=== PATIENT | male | born 1940 | race Caucasian/White ===

== ENCOUNTER 2016-12-13 18:49 | Emergency (ER) | payer MEDICARE ==
[2016-12-13] MEDS ORDERED: Diphtheria/Tetanus Toxoids,Adult (Td) 0.5 ML Syringe IM ONE (19:04)
[2016-12-13] MEDS ORDERED: Bacitracin Oint 1 GM U/D Packet TOP ONE (19:04)
[2016-12-13] MEDS ORDERED: Lidocaine 1% 20 ML MDV ONE (19:10)
--- NOTE | 2016-12-13 19:44 | EDM.PDOC ---
ED HPI GENERAL MEDICAL PROBLEM - General Chief Complaint: Laceration Stated Complaint: LEFT ARM CUT Time Seen by Provider: 12/13/16 19:20 Source of Information: Reports: Patient History Limitations: Reports: No Limitations - History of Present Illness INITIAL COMMENTS - FREE TEXT/NARRATIVE: HISTORY AND PHYSICAL: History of present illness: [Patient comes to the emergency room complaining of a laceration to his left medial distal forearm. He was working on a combine when he cut his wrist on a piece of sheet metal while he was climbing down off the combine. Cleaned it well at home but was unable to stop bleeding. Presents to the emergency room for evaluation. Cannot remember the date of his last tetanus shot. Denies taking any blood thinners other than a baby aspirin every day.] Review of systems: As per history of present illness and below otherwise all systems reviewed and negative. Past medical history: As per history of present illness and as reviewed below otherwise noncontributory. Surgical history: As per history of present illness and as reviewed below otherwise noncontributory. Social history: No reported history of drug or alcohol abuse. Family history: As per history of present illness and as reviewed below otherwise noncontributory. Physical exam: HEENT: Atraumatic, normocephalic. Extremities: 3.5 cm linear flap-type laceration to left medial distal forearm. See procedure note. Is nontender with palpation over elbow radius and ulna. Has full range of motion. Neurovascular unremarkable. Neuro: Awake, alert, oriented. Motor and sensory unremarkable throughout. Exam nonfocal. Psych: Pleasant, conversational. Impression: [laceration L distal forearm] Plan: [Wound is closed without any difficulty. See procedure note. Adacel was updated. Return to ER in 7 days for suture removal. Patients in agreement with today's plan. All questions are answered and concerns are addressed.] Definitive disposition and diagnosis as appropriate pending reevaluation and review of above. Left Arm Pain Score (Numeric/FACES): 2 - Related Data Allergies Allergy/AdvReac Type Severity Reaction Status Date / Time No Known Allergies Allergy Verified 12/13/16 18:57 Home Meds: Home Meds Aspirin [Halfprin] 1 tab PO DAILY 01/10/16 [History] Diltiazem HCl [Diltiazem 24Hr ER] 1 tab PO DAILY 01/10/16 [History] Fish Oil/[place]-3 Fatty Acids [Fish Oil 1,000 MG] 1 cap PO DAILY 01/10/16 [ History] Multivitamin [Multi-Day Vitamins] 1 tab PO DAILY 01/10/16 [History] Past Medical History Cardiovascular History: Reports: Hypertension, Other (See Below) Other Cardiovascular History: h/o SVT first 1-2 per week, after placed on diltiazem 1-2 per year- last one 3 months ago. Last between 30 sec. and 10 minutes Gastrointestinal History: Reports: Other (See Below) Other Gastrointestinal History: Current Left Inguinal hernia Genitourinary History: Reports: Other (See Below) Musculoskeletal History: Reports: Arthritis Other Musculoskeletal History: Right Shoulder pain, hx: Shoulder dislocation Oncologic (Cancer) History: Reports: Prostate, Squamous Cell Carcinoma Dermatologic History: Reports: Other (See Below) Other Dermatologic History: Sebaceous Cyst to back - Infectious Disease History Infectious Disease History: Reports: Chicken Pox, Measles, Mumps - Past Surgical History HEENT Surgical History: Reports: Cataract Surgery, Other (See Below) Social & Family History - Tobacco Use Smoking Status *Q: Current Every Day Smoker Years of Tobacco use: 10 Packs/Tins Daily: 0.5 - Caffeine Use Caffeine Use: Reports: None - Recreational Drug Use Recreational Drug Use: No Drug Use in Last 12 Months: No ED ROS GENERAL - Review of Systems Review Of Systems: ROS reveals no pertinent complaints other than HPI. ED EXAM, SKIN/RASH Exam: See Below ED SKIN PROCEDURES - Laceration/Wound Repair Left Medial Distal Arm Lac/Wound length In cm: 3.5 Appearance: Subcutaneous Distal NVT: Neuro & Vascular Intact, No Tendon Injury Anesthetic Type: Local Local Anesthesia - Lidocaine (Xylocaine): 1% Plain Local Anesthetic Volume: 5cc Skin Prep: Chlorhexidine (Hibiciens), Saline, Sterile Drape Exploration/Debridement/Repair: Wound Explored, In a Bloodless Field, No Foreign Material Found Closed with: Sutures, Steri-Strips Suture Size: 4-0 # of Sutures: 6 Suture Type: Nylon Sterile Dressing Applied: Nurse Tetanus Status Addressed: Yes Complications: No Course - Vital Signs Last Recorded V/S: Last Vital Signs Temp 97.9 F 12/13/16 18:58 Pulse 89 12/13/16 18:58 Resp 18 12/13/16 18:58 BP 122/80 12/13/16 18:58 Pulse Ox 97 12/13/16 18:58 - Orders/Labs/Meds Orders: Active Orders 24 hr Category Date Time Status Vaccines to be Administered [RC] PER UNIT ROUTINE Care 12/13/16 19:05 Active Meds: Medications Discontinued Medications Generic Name Dose Route Start Last Admin Trade Name Carmen PRN Reason Stop Dose Admin Bacitracin 1 dose 12/13/16 19:04 12/13/16 19:14 Bacitracin Oint 1 Gm TOP 12/13/16 19:05 1 dose ONETIME ONE Administration Lidocaine HCl Confirm 12/13/16 19:10 12/13/16 19:14 Xylocaine 1% Administered 12/13/16 19:11 20 ml Dose Administration 20 ml .ROUTE .STK-MED ONE Tetanus/Diphtheria Toxoids 0.5 ml 12/13/16 19:04 12/13/16 19:14 Tenivac IM 12/13/16 19:05 0.5 ml .ONCE ONE Administration Departure - Departure Time of Disposition: 19:45 Disposition: Home, Self-Care 01 Condition: Good Clinical Impression: Laceration of forearm, left - Discharge Information Instructions: Laceration Care, Adult Referrals: PCP,Unknown [Primary Care Provider] - Forms: ED Department Discharge Additional Instructions: The following information is given to patients seen in the emergency department who are being discharged to home. This information is to outline your options for follow-up care. We provide all patients seen in our emergency department with a follow-up referral. The need for follow-up, as well as the timing and circumstances, are variable depending upon the specifics of your emergency department visit. If you don't have a primary care physician on staff, we will provide you with a referral. We always advise you to contact your personal physician following an emergency department visit to inform them of the circumstance of the visit and for follow-up with them and/or the need for any referrals to a consulting specialist. The emergency department will also refer you to a specialist when appropriate. This referral assures that you have the opportunity for follow-up care with a specialist. All of these measure are taken in an effort to provide you with optimal care, which includes your follow-up. Under all circumstances we always encourage you to contact your private physician who remains a resource for coordinating your care. When calling for follow-up care, please make the office aware that this follow-up is from your recent emergency room visit. If for any reason you are refused follow-up, please contact the [facility] emergency department at and asked to speak to the emergency department charge nurse. [address] [address] Establish care with a local primary care provider at the clinic listed above. Return to ER in 7 days for suture removal as instructed. Return to ER as needed as discussed.
[2016-12-13 19:47] VITALS: BP 121/80
== END 2016-12-13 19:50 | disposition home or self-care (01) ==
LOC: MW.ED 18:49
DX: S51.812A Laceration without foreign body of left forearm, initial encounter (principal); I10 Essential (primary) hypertension; F17.210 Nicotine dependence, cigarettes, uncomplicated; Z79.82 Long term (current) use of aspirin; Z79.899 Other long term (current) drug therapy; Z23 Encounter for immunization; W26.8XXA Contact with other sharp object(s), not elsewhere classified, initial encounter
CPT/HCPCS: 12002; 90471; 90714; 99282; 99282-25

== ENCOUNTER 2017-12-17 14:11 | Observation (INO) | payer MEDICARE ==
[2017-12-17] MEDS ORDERED: Sodium Chloride 0.9% 10 ML Syringe FLUSH PRN ×2 (14:14→18:32)
[2017-12-17] MEDS ORDERED: Sodium Chloride 0.9% 2.5 ML Syringe FLUSH PRN ×2 (14:14→18:32)
[2017-12-17] MEDS ORDERED: Sodium Chloride 0.9% 1,000 ML IV ONE (14:14)
--- NOTE | 2017-12-17 14:33 | EDM.PDOC ---
ED HPI GENERAL MEDICAL PROBLEM - General Chief Complaint: Neuro Symptoms/Deficits Stated Complaint: DIZZY Time Seen by Provider: 12/17/17 14:30 Source of Information: Reports: Patient History Limitations: Reports: No Limitations - History of Present Illness INITIAL COMMENTS - FREE TEXT/NARRATIVE: HISTORY AND PHYSICAL: History of present illness: Patient is 77-year-old male here with complaint of dizziness that started this morning. He reports that about 10 AM he began to feel dizzy as a stepped down from his tractor and has been getting dizzy intermittently every time that he leans forward. He denies any head injury. He states he's had a bit of a headache in his frontal sinuses. He denies any nausea, vomiting, diarrhea, abdominal pain, chest pain, shortness of breath, fever, chills. Patient reports a history of atrial fibrillation and takes diltiazem. He states that he drinks a lot of caffeine and smokes cigars daily. 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 Review of systems: As per history of present illness and below otherwise all systems reviewed and negative. Past medical history: As per history of present illness and as reviewed below otherwise noncontributory. Surgical history: As per history of present illness and as reviewed below otherwise noncontributory. Social history: No reported history of drug or alcohol abuse. Family history: As per history of present illness and as reviewed below otherwise noncontributory. Physical exam: General: Patient sitting comfortably in no acute distress and nontoxic appearing HEENT: Atraumatic, normocephalic, pupils reactive, negative for conjunctival pallor or scleral icterus, mucous membranes moist, throat clear, neck supple, nontender, trachea midline. No meningeal signs. Lungs: Clear to auscultation, breath sounds equal bilaterally, chest nontender. Heart: S1S2, regular, negative for clicks, rubs, or overt murmur. Abdomen: Soft, nondistended, nontender. Negative for masses or hepatosplenomegaly. Negative for costovertebral tenderness. Pelvis: Stable nontender. Genitourinary: Deferred. Rectal: Deferred. Extremities: Atraumatic, negative for cords or calf pain. Neurovascular unremarkable. Neuro: Awake, alert, oriented. Cranial nerves II through XII unremarkable. Cerebellum unremarkable. Motor and sensory unremarkable throughout. Exam nonfocal. Notes: 1530 - Dr. Carrasquillo consulted on elevated troponin and will consult patient in the ED. 1600 - will get BNP, d-dimer, chest x-ray per Dr. Carrasquillo. Patient will be admitted here, Dr. Milligan accepted patient for admit. Diagnostics: CBC, CMP, troponin, EKG, head CT Therapeutics 1 L normal saline IV 324mg Aspirin chewed Prescriptions: Impression: NSTEMI Plan: Discussed with Dr. Milligan, patient will be admitted for telemetry. Definitive disposition and diagnosis as appropriate pending reevaluation and review of above. - Related Data Allergies Allergy/AdvReac Type Severity Reaction Status Date / Time No Known Allergies Allergy Verified 12/17/17 14:15 Home Meds: Home Meds Aspirin [Halfprin] 1 tab PO DAILY 01/10/16 [History] Diltiazem HCl [Diltiazem 24Hr ER] 1 tab PO DAILY 01/10/16 [History] Fish Oil/[place]-3 Fatty Acids [Fish Oil 1,000 MG] 1 cap PO DAILY 01/10/16 [ History] Multivitamin [Multi-Day Vitamins] 1 tab PO DAILY 01/10/16 [History] Past Medical History Cardiovascular History: Reports: Afib, Other (See Below) Other Cardiovascular History: h/o SVT first 1-2 per week, after placed on diltiazem 1-2 per year- last one 3 months ago. Last between 30 sec. and 10 minutes Gastrointestinal History: Reports: Other (See Below) Other Gastrointestinal History: Current Left Inguinal hernia Genitourinary History: Reports: Other (See Below) Musculoskeletal History: Reports: Arthritis Other Musculoskeletal History: Right Shoulder pain, hx: Shoulder dislocation Oncologic (Cancer) History: Reports: Prostate, Squamous Cell Carcinoma Dermatologic History: Reports: Other (See Below) Other Dermatologic History: Sebaceous Cyst to back - Infectious Disease History Infectious Disease History: Reports: Chicken Pox, Measles - Past Surgical History HEENT Surgical History: Reports: Cataract Surgery, Other (See Below) Social & Family History - Family History Family Medical History: Noncontributory - Tobacco Use Smoking Status *Q: Current Every Day Smoker Years of Tobacco use: 10 Packs/Tins Daily: 0.3 - Caffeine Use Caffeine Use: Reports: Coffee - Alcohol Use Days Per Week of Alcohol Use: 7 Number of Drinks Per Day: 3 Total Drinks Per Week: 21 - Recreational Drug Use Recreational Drug Use: No ED ROS GENERAL - Review of Systems Review Of Systems: ROS reveals no pertinent complaints other than HPI. ED EXAM, NEURO - Physical Exam Exam: See Below (see dictation) Course - Vital Signs Last Recorded V/S: Last Vital Signs Temp 36.9 C 12/17/17 14:15 Pulse 78 12/17/17 15:30 Resp 16 12/17/17 15:30 BP 125/59 L 12/17/17 15:30 Pulse Ox 96 12/17/17 15:30 - Orders/Labs/Meds Orders: Active Orders 24 hr Category Date Time Status Admission Status [Patient Status] [ADT] Stat ADT 12/17/17 17:34 Ordered EKG Documentation Completion [RC] STAT Care 12/17/17 14:15 Active Notify Provider Consults [RC] ASDIRECTED Care 12/17/17 15:43 Active Consult to Physician [CONS] Stat Cons 12/17/17 15:43 Active CTA Chest W WO Contrast [Ang Chest] [CT] Stat Exams 12/17/17 16:44 Taken Chest 2V [CR] Stat Exams 12/17/17 16:08 Taken Sodium Chloride 0.9% [Saline Flush] Med 12/17/17 14:14 Active 10 ml FLUSH ASDIRECTED PRN Sodium Chloride 0.9% [Saline Flush] Med 12/17/17 14:14 Active 2.5 ml FLUSH ASDIRECTED PRN Saline Lock Insert [OM.PC] Stat Oth 12/17/17 14:14 Ordered Medication Orders Sodium Chloride (Saline Flush) 10 ml FLUSH ASDIRECTED PRN PRN Reason: Keep Vein Open Last Admin: 12/17/17 14:29 Dose: 10 ml Sodium Chloride (Saline Flush) 2.5 ml FLUSH ASDIRECTED PRN PRN Reason: Keep Vein Open Last Admin: 12/17/17 14:29 Dose: 2.5 ml Labs: Laboratory Tests 12/17/17 12/17/17 12/17/17 Range/Units 14:25 14:25 16:21 WBC 7.91 (4.0-11.0) K/uL RBC 4.25 L (4.50-5.90) M/uL Hgb 14.1 (13.0-17.0) g/dL Hct 39.7 (38.0-50.0) % MCV 93.4 (80.0-98.0) fL MCH 33.2 H (27.0-32.0) pg MCHC 35.5 (31.0-37.0) g/dL RDW Std Deviation 45.3 (28.0-62.0) fl RDW Coeff of Faith 13 (11.0-15.0) % Plt Count 237 (150-400) K/uL MPV 9.50 (7.40-12.00) fL Neut % (Auto) 62.3 (48.0-80.0) % Lymph % (Auto) 22.1 (16.0-40.0) % [place] % (Auto) 11.0 (0.0-15.0) % Eos % (Auto) 4.3 (0.0-7.0) % Baso % (Auto) 0.3 (0.0-1.5) % Neut # (Auto) 4.9 (1.4-5.7) K/uL Lymph # (Auto) 1.8 (0.6-2.4) K/uL [place] # (Auto) 0.9 H (0.0-0.8) K/uL Eos # (Auto) 0.3 (0.0-0.7) K/uL Baso # (Auto) 0.0 (0.0-0.1) K/uL Nucleated RBC % 0.0 /100WBC Nucleated RBCs # 0 K/uL D-Dimer, Quantitative 1.18 H (0.0-0.52) mg/LFEU Sodium 137 (136-148) mmol/L Potassium 4.0 (3.5-5.1) mmol/L Chloride 103 (98-107) mmol/L Carbon Dioxide 26.9 (21.0-32.0) mmol/L BUN 16 (7.0-18.0) mg/dL Creatinine 1.3 (0.8-1.3) mg/dL Est Cr Clr Drug Dosing 46.57 mL/min Estimated GFR (MDRD) 53.4 ml/min Glucose 113 H (74-106) mg/dL Calcium 9.3 (8.5-10.1) mg/dL Total Bilirubin 0.6 (0.2-1.0) mg/dL AST 14 L (15-37) IU/L ALT 16 (14-63) IU/L Alkaline Phosphatase 97 (46-116) U/L Troponin I 0.342 H* (0.000-0.056) ng/mL B-Natriuretic Peptide (<100) PG/ML Total Protein 7.6 (6.4-8.2) g/dL Albumin 3.5 (3.4-5.0) g/dL Globulin 4.1 H (2.0-3.5) g/dL Albumin/Globulin Ratio 0.9 L (1.3-2.8) 12/17/17 Range/Units 16:21 WBC (4.0-11.0) K/uL RBC (4.50-5.90) M/uL Hgb (13.0-17.0) g/dL Hct (38.0-50.0) % MCV (80.0-98.0) fL MCH (27.0-32.0) pg MCHC (31.0-37.0) g/dL RDW Std Deviation (28.0-62.0) fl RDW Coeff of Faith (11.0-15.0) % Plt Count (150-400) K/uL MPV (7.40-12.00) fL Neut % (Auto) (48.0-80.0) % Lymph % (Auto) (16.0-40.0) % [place] % (Auto) (0.0-15.0) % Eos % (Auto) (0.0-7.0) % Baso % (Auto) (0.0-1.5) % Neut # (Auto) (1.4-5.7) K/uL Lymph # (Auto) (0.6-2.4) K/uL [place] # (Auto) (0.0-0.8) K/uL Eos # (Auto) (0.0-0.7) K/uL Baso # (Auto) (0.0-0.1) K/uL Nucleated RBC % /100WBC Nucleated RBCs # K/uL D-Dimer, Quantitative (0.0-0.52) mg/LFEU Sodium (136-148) mmol/L Potassium (3.5-5.1) mmol/L Chloride (98-107) mmol/L Carbon Dioxide (21.0-32.0) mmol/L BUN (7.0-18.0) mg/dL Creatinine (0.8-1.3) mg/dL Est Cr Clr Drug Dosing mL/min Estimated GFR (MDRD) ml/min Glucose (74-106) mg/dL Calcium (8.5-10.1) mg/dL Total Bilirubin (0.2-1.0) mg/dL AST (15-37) IU/L ALT (14-63) IU/L Alkaline Phosphatase (46-116) U/L Troponin I (0.000-0.056) ng/mL B-Natriuretic Peptide 30 (<100) PG/ML Total Protein (6.4-8.2) g/dL Albumin (3.4-5.0) g/dL Globulin (2.0-3.5) g/dL Albumin/Globulin Ratio (1.3-2.8) Meds: Medications Generic Name Dose Route Start Last Admin Trade Name Freq PRN Reason Stop Dose Admin Sodium Chloride 10 ml 12/17/17 14:14 12/17/17 14:29 Saline Flush FLUSH 10 ml ASDIRECTED PRN Administration Keep Vein Open Sodium Chloride 2.5 ml 12/17/17 14:14 12/17/17 14:29 Saline Flush FLUSH 2.5 ml ASDIRECTED PRN Administration Keep Vein Open Discontinued Medications Generic Name Dose Route Start Last Admin Trade Name Freq PRN Reason Stop Dose Admin Aspirin 324 mg 12/17/17 15:37 12/17/17 15:45 Aspirin PO 12/17/17 15:38 324 mg ONETIME ONE Administration Sodium Chloride 1,000 mls @ 999 mls/hr 12/17/17 14:14 12/17/17 14:29 Normal Saline IV 12/17/17 15:14 999 mls/hr STAT ONE Administration Departure - Departure Time of Disposition: 17:38 Disposition: DC/Tfer to Hospice - Home 50 Condition: Good Clinical Impression: NSTEMI (non-ST elevated myocardial infarction) - Discharge Information Referrals: PCP,None [Primary Care Provider] - Forms: ED Department Discharge - My Orders Last 24 Hours: My Active Orders 12/17/17 14:14 Sodium Chloride 0.9% [Saline Flush] 10 ml FLUSH ASDIRECTED PRN Sodium Chloride 0.9% [Saline Flush] 2.5 ml FLUSH ASDIRECTED PRN Saline Lock Insert [OM.PC] Stat 12/17/17 14:15 EKG Documentation Completion [RC] STAT 12/17/17 15:43 Notify Provider Consults [RC] ASDIRECTED Consult to Physician [CONS] Stat 12/17/17 16:08 Chest 2V [CR] Stat 12/17/17 16:44 CTA Chest W WO Contrast [Ang Chest] [CT] Stat 12/17/17 17:34 Admission Status [Patient Status] [ADT] Stat - Assessment/Plan Last 24 Hours: My Active Orders 12/17/17 14:14 Sodium Chloride 0.9% [Saline Flush] 10 ml FLUSH ASDIRECTED PRN Sodium Chloride 0.9% [Saline Flush] 2.5 ml FLUSH ASDIRECTED PRN Saline Lock Insert [OM.PC] Stat 12/17/17 14:15 EKG Documentation Completion [RC] STAT 12/17/17 15:43 Notify Provider Consults [RC] ASDIRECTED Consult to Physician [CONS] Stat 12/17/17 16:08 Chest 2V [CR] Stat 12/17/17 16:44 CTA Chest W WO Contrast [Ang Chest] [CT] Stat 12/17/17 17:34 Admission Status [Patient Status] [ADT] Stat
--- NOTE | 2017-12-17 15:08 | CT ---
EXAMINATION: Non contrast CT head. Coronal and sagittal reformats. HISTORY: Pain FINDINGS: No evidence of intra or extra axial hemorrhage, mass, midline shift, hydrocephalus or edema. There i s mild generalized atrophy. No hypoattenuation changes in the major vascular territories to suggest acute infarct. No abnormal intracranial calcifications are detected. No evidence of substantial vascular calcificat ions. Paranasal sinuses and mastoid air cells are well aerated without substantial findings. Pituitary fossa appears unremarkable. Orbits and globes are symmetric. There is a 2.2 x 1.3 cm right parotid nodule noted. Calvarium is intact. No evidence of skull fracture. IMPRESSION: 1. No acute intracranial findings. 2. Mild generalized atrophy. 3. There is a 2.2 x 1.3 cm right parotid nodule identified. Follow-up with ultrasound and possible bi opsy may be beneficial.
[2017-12-17] MEDS ORDERED: Aspirin 81 MG Tab.Chew PO ONE (15:37)
[2017-12-17] MEDS ORDERED: Iopamidol 755 MG/ML 500 ML Multipack Bottle IVPUSH STA (17:39)
--- NOTE | 2017-12-17 18:14 | CONS ---
DATE OF CONSULTATION: DATE OF : 1940 PRIMARY CARE PHYSICIAN: None PCP REASON FOR CONSULTATION: Elevation in troponin. HISTORY OF PRESENT ILLNESS: This is a 77-year-old male who has a history of hypertension and prostate cancer. He was former smoker and he presented to the hospital at this time due to dizzy spell. He stated that 6 weeks ago when he was carrying the heavy item, he was slipping and then he fell down. He hit his head to the floor. He did not lose consciousness. No weakness. No headaches. He has a slight cut on the back of his head, but it has healed up already. He did not come to the emergency room or seen the doctor. Since then, he has been having these dizzy spells that he stated that he feels an imbalance, especially when he is standing up or sitting up or stepping down or bends over, lasting for 15 to 30 seconds. No nausea, no vomiting, no sweating. He denies chest pain. Denies shortness of breath. He denies chest tightness as well. Also has indigestion. He has a history of a stress test in the past, long time ago. He does not recall the results. He denied history of a stent placement or heart attack. He is on diltiazem as well as a baby aspirin for his blood pressure. Otherwise, he is feeling okay except the dizzy spell. He feels like his energy level was down for a long period of time, maybe decrease in his stamina as well, but he still does some farming, still does some yard work as well as shoveling snow, some house work without any problem. He also denied leg swelling or orthopnea as well. PAST MEDICAL HISTORY: Including prostate cancer, hypertension, history of cataracts. MEDICATIONS: Includin. Diltiazem 180 mg once a day. 2. Aspirin once a day. ALLERGIES: No known drug allergies. FAMILY HISTORY: He denies family history of a CAD. SOCIAL HISTORY: He is a former smoker, heavily. He drinks alcohol 2 to 3 times at night. He denied drug use. PHYSICAL EXAMINATION: VITAL SIGNS: Blood pressure initially was low at 138/70, heart rate of 70 to 80, O2 saturation is 97 to 99 on room air, temperature is 36.9. HEENT: Not pale. No jaundice. NECK: JVD possibly positive. LUNGS: Crackles bilaterally. Mild crackle. No wheezing. HEART: Normal S1, S2. No murmur. Regular rate and rhythm. ABDOMEN: Soft, nontender. Bowel sounds are present. No hepatosplenomegaly. EXTREMITIES: Legs with no edema. LABORATORY INVESTIGATION: CBC showed WBC 7, hematocrit of 39, hemoglobin of 14, platelet is 237. Sodium 137, potassium 4.0, chloride 103, bicarb 26, BUN 16, creatinine 1.3, GFR is 53, and glucose 113. Liver function is normal. Troponin was positive 0.3. EKG showed sinus rhythm on December 17, 2017. Heart rate of 84, WA interval 167, QRS duration 105, QTc interval 439, left axis deviation, left anterior fascicular block. There are some PVCs. Head CT showed generalized atrophy, 2.2 x 1.3 right parotid nodule. No abnormal intracranial calcification detected. No site of bleeding, hemorrhage, midline shift. ASSESSMENT AND PLAN: This is a 77-year-old male with history of hypertension and prostate cancer, presented to hospital with increased dizzy spells with elevation of troponin. There were no EKG changes when compared to previous EKG and he denied totally a chest pain, chest tightness or indigestion, even shortness of breath. Not exactly sure what would be the cause of troponin, but currently there is no symptom of the chest pain indicating of any site of ischemia, only dizziness. To me, dizziness could be just the vertigo and from physical examination, he has some JVD, not exactly sure that he is in heart failure definitely, but we will definitely check BNP as well as a chest x-ray. For the elevation troponin, I think we can keep him in the hospital and cycle cardiac enzymes. Check an echocardiogram. Make sure there is no PE. Repeat the EKG again next morning. EMMANUEL / LEOBARDO /[id number]
[2017-12-17] MEDS ORDERED: oxyCODONE 5 MG Tab PO PRN (18:32)
[2017-12-17] MEDS ORDERED: Ondansetron 4 MG/2 ML SDV IVPUSH PRN (18:32)
[2017-12-17] MEDS ORDERED: Acetaminophen 325 MG Tab PO PRN (18:32)
[2017-12-17] MEDS ORDERED: Albuterol/Ipratropium 3.0-0.5 MG/3 ML Neb Soln NEB PRN (18:32)
[2017-12-17] MEDS ORDERED: Clopidogrel 75 MG Tab PO ONE (18:35)
[2017-12-17] MEDS ORDERED: atorvaSTATin 40 MG Tab PO ONE (18:35)
[2017-12-17] MEDS ORDERED: Morphine 2 MG/ML Syringe IVPUSH PRN (18:37)
[2017-12-17] MEDS ORDERED: Heparin Sod,Pork In 0.45% Nacl 25,000 UNIT/500 ML IV.SOLN IV SCH (18:45)
[2017-12-17] MEDS ORDERED: Heparin Sodium 5,000 Units/ML Vial IVPUSH PRN (18:48)
[2017-12-18] MEDS ORDERED: Heparin Sodium 5,000 Units/ML Vial IVPUSH ONE ×2 (01:37→13:55)
[2017-12-18] MEDS ORDERED: Heparin Sodium 5,000 Units/ML Vial ONE (01:41)
[2017-12-18] MEDS ORDERED: Heparin Sodium 5,000 Units/ML Vial IVPUSH PRN (07:34)
[2017-12-18] MEDS ORDERED: Lactated Ringers 1,000 ML IV SCH (08:30)
[2017-12-18] MEDS ORDERED: Multivitamin Tab PO SCH (09:00)
[2017-12-18] MEDS ORDERED: Fish Oil/Omega-3 Fatty Acids 1 Gm Cap PO SCH (09:00)
[2017-12-18] MEDS ORDERED: Diltiazem 180 MG Cap.CD PO SCH (09:00)
[2017-12-18] MEDS ORDERED: Aspirin 81 MG Tab.EC PO SCH (09:00)
--- NOTE | 2017-12-18 10:36 | CR ---
EXAM DATE: 12/17/17 PATIENT'S AGE: 77 Patient: ROMÁN NIELSEN Facility: [place], [place] Site . Site : 1940 Study: XRay Chest [id number] 4:46:06 PM Ordering Physician: Doctor German Final Report: INDICATION: Elevated d-dimer, dizziness TECHNIQUE: Chest radiograph 2 views COMPARISON: None FINDINGS: Mediastinum: The mediastinum is normal in appearance. The heart silhouette is normal in size and morphology. Lung: Asymmetric densities are present in the left midlung zone and likely correspond to calcifications in the left 4th-6th costochondral junctions. There is a 10 mm nodular density in the left mid lung zone which may represent may prominent nipple silhouette. No sign of pleural effusion seen. No pneumothorax is identified. Musculoskeletal: Unremarkable for age. IMPRESSION: 1. There is a 10 mm nodular density in the left mid lung zone which may represent may prominent nipple silhouette. Follow-up radiograph with nipple markers recommended. Dictated by Charles Solano MD @ 12/17/2017 4:54:53 PM Dictated by: Charles Solano MD @ 12/17/2017 16:54:59 (Electronic Signature) Report Signed by Proxy. ROSA MARIA
--- NOTE | 2017-12-18 10:39 | CT ---
EXAM DATE: 12/17/17 PATIENT'S AGE: 77 Patient: ROMÁN NIELSEN Facility: [place], [place] Site . Site : 1940 Study: CT Chest Angio [id number] 5:21:39 PM Ordering Physician: Doctor German Final Report: INDICATION: Elevated d-dimer TECHNIQUE: CT chest with i.v. contrast using pulmonary angiographic technique. Coronal and sagittal reformats were obtained. CONTRAST: 50 mL Isovue 370 COMPARISON: None FINDINGS: Cardiovascular: The pulmonary arteries are unremarkable in enhancement with no evidence of acute pulmonary embolism. The heart has an unremarkable appearance and size. 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 moderate atherosclerotic calcifications are noted in the coronary arteries. Mediastinum: No mass or adenopathy seen. Lung: Both lungs are unremarkable in appearance. The lung bases are partially excluded. Pleura and pericardium: No sign of pleural effusion seen. No significant pericardial effusion is present. Chest wall and axilla: No mass or adenopathy seen. Bone: Unremarkable for age. Upper abdomen: Unremarkable. IMPRESSIONS: 1. No CT evidence of pulmonary emboli seen. 2. 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 Dictated by Charles Solano MD @ 12/17/2017 5:35:21 PM Please note that all CT scans at this facility use dose modulation, iterative reconstruction, and/or weight-based dosing when appropriate to reduce radiation dose to as low as reasonably achievable. Dictated by: Charles Solano MD @ 12/17/2017 17:35:24 (Electronic Signature) Report Signed by Proxy. ROSA MARIA
[2017-12-18] MEDS ORDERED: Clopidogrel 75 MG Tab PO SCH (13:00)
[2017-12-18] MEDS ORDERED: Aspirin 81 MG Tab.Chew PO SCH (13:00)
--- NOTE | 2017-12-18 16:10 | US ---
EXAMINATION: Carotid US with elise scale and duplex imaging. HISTORY: Near syncope FINDINGS: Ultrasound examination of bilateral cervical carotid arteries was performed using elise scale and dupl ex imaging. Mild scattered atheromatous changes noted within the carotid arteries bilaterally. Ante grade flow noted within the vertebrals. These are the peak velocities in cm per second (systole), right and left respectively, by a comma: CCA (common carotid artery) - 106, 108 ICA (internal carotid artery) - 90, 78 ECA (External carotid artery) - 85, 62 ICA/CCA systolic ratio Right - 1.0 Left - 1.0 IMPRESSION: Mild scattered atheromatous changes without significant stenosis on elise scale imaging or elevated ve locities.
[2017-12-18 16:47] VITALS: BP 121/66
[2017-12-18] MEDS ORDERED: Diltiazem 120 MG Cap.CD PO SCH (18:00)
--- NOTE | 2017-12-18 19:46 | PCM.HP ---
H&P History of Present Illness - General Date of Service: 12/18/17 Admit Problem/Dx: Admission Diagnosis/Problem Admission Diagnosis/Problem dizziness Source of Information: Patient History Limitations: Reports: No Limitations - History of Present Illness Initial Comments - Free Text/Narative: Patient 77 y old man presented to hospital due to dizziness when he was trying to bend over or stand up. He describe his dizziness as lightheadedness.He still smoke 3-4 ciggars a day .Had a fall 6 weeks ago when he was walking backwards on a stairs and had a 80 lbs load landing on his chest.He hit his back of his head, but did not loose consciousness. Patient says he had some lower rt anterior thoracic pain after the fall for severel weeks. Patient denies chest pain now. At admission in ER he was found to have elevated troponins. Cardiology saw patient and recommended patient to be admitted to telemetry on heparin drip , full dose of aspirin and plavix and will reevaluate patient in am. CTPA - no pE , ectasia of ascending Ao : 3.9. Aneurismal dilatation of the posterior Ao arch;3.6 Symptom Onset Date: 12/17/17 Duration of Symptoms: Reports: Minutes: - Related Data Allergies/Adverse Reactions: Allergies Allergy/AdvReac Type Severity Reaction Status Date / Time No Known Allergies Allergy Verified 12/17/17 14:15 Home Medications: Home Meds Aspirin [Halfprin] 1 tab PO DAILY 01/10/16 [History] Fish Oil/[place]-3 Fatty Acids [Fish Oil 1,000 MG] 1 cap PO DAILY 01/10/16 [ History] Multivitamin [Multi-Day Vitamins] 1 tab PO DAILY 01/10/16 [History] Aspirin 81 mg PO DAILY #60 tab.chew 12/18/17 [Rx] Diltiazem [Cardizem CD] 120 mg PO DAILY #30 cap.cd 12/18/17 [Rx] Multivitamins [Tab-A-Bria] 1 tab PO DAILY tablet 12/18/17 [Rx] Past Medical History Cardiovascular History: Reports: Afib, Other (See Below) Other Cardiovascular History: h/o SVT first 1-2 per week, after placed on diltiazem 1-2 per year- last one 3 months ago. Last between 30 sec. and 10 minutes Gastrointestinal History: Reports: Other (See Below) Other Gastrointestinal History: Current Left Inguinal hernia Genitourinary History: Reports: Other (See Below) Other Genitourinary History: Hx of Prostactectomy Musculoskeletal History: Reports: Arthritis Other Musculoskeletal History: Right Shoulder pain, hx: Shoulder dislocation Oncologic (Cancer) History: Reports: Prostate, Squamous Cell Carcinoma Dermatologic History: Reports: Other (See Below) Other Dermatologic History: Sebaceous Cyst to back, Hx of Squamous cell CA - Infectious Disease History Infectious Disease History: Reports: Chicken Pox, Measles - Past Surgical History HEENT Surgical History: Reports: Cataract Surgery, Other (See Below) Social & Family History - Family History Family Medical History: Noncontributory - Tobacco Use Smoking Status *Q: Current Every Day Smoker Years of Tobacco use: 10 Packs/Tins Daily: 1 Second Hand Smoke Exposure: No - Caffeine Use Caffeine Use: Reports: Coffee - Alcohol Use Days Per Week of Alcohol Use: 7 Number of Drinks Per Day: 3 Total Drinks Per Week: 21 Date of Last Drink: 12/16/17 - Recreational Drug Use Recreational Drug Use: No H&P Review of Systems - Review of Systems: Review Of Systems: See Below General: Reports: No Symptoms HEENT: Reports: No Symptoms Pulmonary: Reports: No Symptoms Cardiovascular: Reports: Lightheadedness Gastrointestinal: Reports: No Symptoms Genitourinary: Reports: No Symptoms Musculoskeletal: Reports: No Symptoms Skin: Reports: No Symptoms Psychiatric: Reports: No Symptoms Neurological: Reports: No Symptoms Hematologic/Lymphatic: Reports: No Symptoms Exam - Exam Exam: See Below - Vital Signs Vital Signs: Last Vital Signs Temp 99.0 F 12/18/17 16:00 Pulse 54 L 12/18/17 16:00 Resp 18 12/18/17 16:00 BP 121/66 12/18/17 16:00 Pulse Ox 98 12/18/17 16:00 Orthostatic Blood Pressure [ 134/77 Standing] Orthostatic Blood Pressure [ 138/66 Supine] Orthostatic Blood Pressure [ 133/70 Sitting] Weight: 153 lb 12.8 oz - Exam General: Alert, Oriented HEENT: Conjunctiva Clear Neck: Supple, Trachea Midline Lungs: Clear to Auscultation, Normal Respiratory Effort Cardiovascular: Regular Rate, Regular Rhythm, Normal S1, Normal S2 GI/Abdominal Exam: Normal Bowel Sounds, Soft, Non-Tender, No Organomegaly, No Distention Back Exam: Normal Inspection Extremities: Normal Inspection - Patient Data Lab Results Last 24 hrs: Laboratory Results - last 24 hr 12/17/17 12/18/17 12/18/17 Range/Units 20:23 01:00 02:28 WBC 6.78 (4.0-11.0) K/uL RBC 3.77 L (4.50-5.90) M/uL Hgb 12.1 L (13.0-17.0) g/dL Hct 35.7 L (38.0-50.0) % MCV 94.7 (80.0-98.0) fL MCH 32.1 H (27.0-32.0) pg MCHC 33.9 (31.0-37.0) g/dL RDW Std Deviation 46.0 (28.0-62.0) fl RDW Coeff of Faith 13 (11.0-15.0) % Plt Count 180 (150-400) K/uL MPV 9.50 (7.40-12.00) fL Neut % (Auto) 51.0 (48.0-80.0) % Lymph % (Auto) 32.2 (16.0-40.0) % [place] % (Auto) 9.9 (0.0-15.0) % Eos % (Auto) 6.0 (0.0-7.0) % Baso % (Auto) 0.9 (0.0-1.5) % Neut # (Auto) 3.5 (1.4-5.7) K/uL Lymph # (Auto) 2.2 (0.6-2.4) K/uL [place] # (Auto) 0.7 (0.0-0.8) K/uL Eos # (Auto) 0.4 (0.0-0.7) K/uL Baso # (Auto) 0.1 (0.0-0.1) K/uL Nucleated RBC % 0.0 /100WBC Nucleated RBCs # 0 K/uL APTT 35.7 H (18.6-31.3) SEC Sodium (136-148) mmol/L Potassium (3.5-5.1) mmol/L Chloride (98-107) mmol/L Carbon Dioxide (21.0-32.0) mmol/L BUN (7.0-18.0) mg/dL Creatinine (0.8-1.3) mg/dL Est Cr Clr Drug Dosing mL/min Estimated GFR (MDRD) ml/min Glucose (74-106) mg/dL Hemoglobin A1c (4.5-6.2) % Calcium (8.5-10.1) mg/dL Total Bilirubin (0.2-1.0) mg/dL AST (15-37) IU/L ALT (14-63) IU/L Alkaline Phosphatase (46-116) U/L Troponin I 0.246 H* (0.000-0.056) ng/mL Total Protein (6.4-8.2) g/dL Albumin (3.4-5.0) g/dL Globulin (2.0-3.5) g/dL Albumin/Globulin Ratio (1.3-2.8) Triglycerides (0-200) mg/dL Cholesterol (50-200) mg/dL LDL Cholesterol, Calc (60-180) mg/dL VLDL Cholesterol (5-55) mg/dL HDL Cholesterol (40-60) mg/dL Cholesterol/HDL Ratio (3.3-6.0) 12/18/17 12/18/17 12/18/17 Range/Units 02:28 02:28 07:03 WBC (4.0-11.0) K/uL RBC (4.50-5.90) M/uL Hgb (13.0-17.0) g/dL Hct (38.0-50.0) % MCV (80.0-98.0) fL MCH (27.0-32.0) pg MCHC (31.0-37.0) g/dL RDW Std Deviation (28.0-62.0) fl RDW Coeff of Faith (11.0-15.0) % Plt Count (150-400) K/uL MPV (7.40-12.00) fL Neut % (Auto) (48.0-80.0) % Lymph % (Auto) (16.0-40.0) % [place] % (Auto) (0.0-15.0) % Eos % (Auto) (0.0-7.0) % Baso % (Auto) (0.0-1.5) % Neut # (Auto) (1.4-5.7) K/uL Lymph # (Auto) (0.6-2.4) K/uL [place] # (Auto) (0.0-0.8) K/uL Eos # (Auto) (0.0-0.7) K/uL Baso # (Auto) (0.0-0.1) K/uL Nucleated RBC % /100WBC Nucleated RBCs # K/uL APTT 39.2 H (18.6-31.3) SEC Sodium 142 (136-148) mmol/L Potassium 3.9 (3.5-5.1) mmol/L Chloride 109 H (98-107) mmol/L Carbon Dioxide 25.8 (21.0-32.0) mmol/L BUN 24 H (7.0-18.0) mg/dL Creatinine 1.4 H (0.8-1.3) mg/dL Est Cr Clr Drug Dosing 43.49 mL/min Estimated GFR (MDRD) 49.0 ml/min Glucose 109 H (74-106) mg/dL Hemoglobin A1c (4.5-6.2) % Calcium 8.6 (8.5-10.1) mg/dL Total Bilirubin 0.2 (0.2-1.0) mg/dL AST 10 L (15-37) IU/L ALT 13 L (14-63) IU/L Alkaline Phosphatase 84 (46-116) U/L Troponin I 0.212 H* (0.000-0.056) ng/mL Total Protein 6.1 L (6.4-8.2) g/dL Albumin 2.7 L (3.4-5.0) g/dL Globulin 3.4 (2.0-3.5) g/dL Albumin/Globulin Ratio 0.8 L (1.3-2.8) Triglycerides (0-200) mg/dL Cholesterol (50-200) mg/dL LDL Cholesterol, Calc (60-180) mg/dL VLDL Cholesterol (5-55) mg/dL HDL Cholesterol (40-60) mg/dL Cholesterol/HDL Ratio (3.3-6.0) 12/18/17 12/18/17 12/18/17 Range/Units 07:03 07:03 13:20 WBC (4.0-11.0) K/uL RBC (4.50-5.90) M/uL Hgb (13.0-17.0) g/dL Hct (38.0-50.0) % MCV (80.0-98.0) fL MCH (27.0-32.0) pg MCHC (31.0-37.0) g/dL RDW Std Deviation (28.0-62.0) fl RDW Coeff of Faith (11.0-15.0) % Plt Count (150-400) K/uL MPV (7.40-12.00) fL Neut % (Auto) (48.0-80.0) % Lymph % (Auto) (16.0-40.0) % [place] % (Auto) (0.0-15.0) % Eos % (Auto) (0.0-7.0) % Baso % (Auto) (0.0-1.5) % Neut # (Auto) (1.4-5.7) K/uL Lymph # (Auto) (0.6-2.4) K/uL [place] # (Auto) (0.0-0.8) K/uL Eos # (Auto) (0.0-0.7) K/uL Baso # (Auto) (0.0-0.1) K/uL Nucleated RBC % /100WBC Nucleated RBCs # K/uL APTT 47.3 H (18.6-31.3) SEC Sodium (136-148) mmol/L Potassium (3.5-5.1) mmol/L Chloride (98-107) mmol/L Carbon Dioxide (21.0-32.0) mmol/L BUN (7.0-18.0) mg/dL Creatinine (0.8-1.3) mg/dL Est Cr Clr Drug Dosing mL/min Estimated GFR (MDRD) ml/min Glucose (74-106) mg/dL Hemoglobin A1c 5.5 (4.5-6.2) % Calcium (8.5-10.1) mg/dL Total Bilirubin (0.2-1.0) mg/dL AST (15-37) IU/L ALT (14-63) IU/L Alkaline Phosphatase (46-116) U/L Troponin I (0.000-0.056) ng/mL Total Protein (6.4-8.2) g/dL Albumin (3.4-5.0) g/dL Globulin (2.0-3.5) g/dL Albumin/Globulin Ratio (1.3-2.8) Triglycerides 38 (0-200) mg/dL Cholesterol 153 (50-200) mg/dL LDL Cholesterol, Calc 82 (60-180) mg/dL VLDL Cholesterol 7 (5-55) mg/dL HDL Cholesterol 63 H (40-60) mg/dL Cholesterol/HDL Ratio 2.4 L (3.3-6.0) 12/18/17 Range/Units 19:00 WBC (4.0-11.0) K/uL RBC (4.50-5.90) M/uL Hgb (13.0-17.0) g/dL Hct (38.0-50.0) % MCV (80.0-98.0) fL MCH (27.0-32.0) pg MCHC (31.0-37.0) g/dL RDW Std Deviation (28.0-62.0) fl RDW Coeff of Faith (11.0-15.0) % Plt Count (150-400) K/uL MPV (7.40-12.00) fL Neut % (Auto) (48.0-80.0) % Lymph % (Auto) (16.0-40.0) % [place] % (Auto) (0.0-15.0) % Eos % (Auto) (0.0-7.0) % Baso % (Auto) (0.0-1.5) % Neut # (Auto) (1.4-5.7) K/uL Lymph # (Auto) (0.6-2.4) K/uL [place] # (Auto) (0.0-0.8) K/uL Eos # (Auto) (0.0-0.7) K/uL Baso # (Auto) (0.0-0.1) K/uL Nucleated RBC % /100WBC Nucleated RBCs # K/uL APTT 32.0 H (18.6-31.3) SEC Sodium (136-148) mmol/L Potassium (3.5-5.1) mmol/L Chloride (98-107) mmol/L Carbon Dioxide (21.0-32.0) mmol/L BUN (7.0-18.0) mg/dL Creatinine (0.8-1.3) mg/dL Est Cr Clr Drug Dosing mL/min Estimated GFR (MDRD) ml/min Glucose (74-106) mg/dL Hemoglobin A1c (4.5-6.2) % Calcium (8.5-10.1) mg/dL Total Bilirubin (0.2-1.0) mg/dL AST (15-37) IU/L ALT (14-63) IU/L Alkaline Phosphatase (46-116) U/L Troponin I (0.000-0.056) ng/mL Total Protein (6.4-8.2) g/dL Albumin (3.4-5.0) g/dL Globulin (2.0-3.5) g/dL Albumin/Globulin Ratio (1.3-2.8) Triglycerides (0-200) mg/dL Cholesterol (50-200) mg/dL LDL Cholesterol, Calc (60-180) mg/dL VLDL Cholesterol (5-55) mg/dL HDL Cholesterol (40-60) mg/dL Cholesterol/HDL Ratio (3.3-6.0) Result Diagrams: 12/18/17 02:28 12/18/17 02:28 EKG INTERPRETATION EKG Date: 12/17/17 Rhythm: NSR Rate (Beats/Min): 84 Dafter: Normal ST-T: Normal - Problem List (1) Near syncope SNOMED Code(s): 329571364 ICD Code: R55 - SYNCOPE AND COLLAPSE Status: Acute (2) Bradycardia SNOMED Code(s): 04755583 ICD Code: R00.1 - BRADYCARDIA, UNSPECIFIED Status: Acute (3) Parotid cyst SNOMED Code(s): 920236306 ICD Code: K11.6 - [place] OF [place] Status: Acute (4) Aortic ectasia, thoracic SNOMED Code(s): 290132490209591 ICD Code: I77.810 - THORACIC AORTIC ECTASIA Status: Acute Problem List Initiated/Reviewed/Updated: Yes Orders Last 24hrs: Active Orders 24 hr Category Date Time Status EKG 12 Lead [EKG Documentation Completion] [RC] ROUTINE Care 12/18/17 08:33 Active EKG 12 Lead [EKG Documentation Completion] [RC] URGENT Care 12/18/17 18:11 Active Ready for Discharge [RC] PER UNIT ROUTINE Care 12/18/17 17:57 Active Echo Comp wo Cont [US] Urgent Exams 12/18/17 08:34 Taken CBC WITH AUTO DIFF [HEME] AM Lab 12/19/17 05:11 Ordered CBC WITH AUTO DIFF [HEME] AM Lab 12/20/17 05:11 Ordered CBC WITH AUTO DIFF [HEME] AM Lab 12/21/17 05:11 Ordered COMPREHENSIVE METABOLIC PN,CMP [CHEM] AM Lab 12/19/17 05:11 Ordered COMPREHENSIVE METABOLIC PN,CMP [CHEM] AM Lab 12/20/17 05:11 Ordered COMPREHENSIVE METABOLIC PN,CMP [CHEM] AM Lab 12/21/17 05:11 Ordered PTT,PARTIAL THROMBOPLSTIN TIME [COAG] Q6H Lab 12/19/17 01:00 Ordered Aspirin Med 12/18/17 13:00 Active 81 mg PO DAILY Clopidogrel [Plavix] Med 12/18/17 13:00 Active 75 mg PO DAILY Diltiazem [Cardizem CD] Med 12/19/17 18:00 Active 120 mg PO DAILY Fish Oil/[place]-3 Fatty Acids [Fish Oil] Med 12/18/17 09:00 Active 1 gm PO DAILY Heparin Sodium Med 12/18/17 07:34 Active See Protocol IVPUSH .BOLUS PRN Lactated Ringers [Ringers, Lactated] 1,000 ml Med 12/18/17 08:30 Active IV ASDIRECTED Multivitamins [Tab-A-Bria] Med 12/18/17 09:00 Active 1 tab PO DAILY Medication Orders Acetaminophen (Tylenol) 650 mg PO Q4H PRN PRN Reason: Pain (Mild 1-3)/fever Albuterol/Ipratropium (Duoneb 3.0-0.5 Mg/3 Ml) 3 ml NEB Q4HRRT PRN PRN Reason: Shortness Of Breath/wheezing Aspirin (Aspirin) 81 mg PO DAILY [facility] Last Admin: 12/18/17 14:01 Dose: 81 mg Clopidogrel Bisulfate (Plavix) 75 mg PO DAILY [facility] Last Admin: 12/18/17 14:01 Dose: 75 mg Diltiazem HCl (Cardizem Cd) 120 mg PO DAILY [facility] Fish Oil (Fish Oil) 1 gm PO DAILY [facility] Last Admin: 12/18/17 08:49 Dose: 1 gm Heparin Sodium (Porcine) (Heparin Sodium) 0 units IVPUSH .BOLUS PRN; Protocol PRN Reason: HEPARIN DRIP Last Admin: 12/18/17 07:54 Dose: 1,000 units Lactated Ringer's (Ringers, Lactated) 1,000 mls @ 125 mls/hr IV ASDIRECTED [facility] Morphine Sulfate (Morphine) 2 mg IVPUSH Q2H PRN PRN Reason: Pain Multivitamins/Minerals/Vitamin C (Tab-A-Bria) 1 tab PO DAILY [facility] Last Admin: 12/18/17 08:49 Dose: 1 tab Ondansetron HCl (Zofran) 4 mg IVPUSH Q4H PRN PRN Reason: Nausea Oxycodone HCl (Oxycodone) 5 mg PO Q4H PRN PRN Reason: Pain (moderate 4-6) Sodium Chloride (Saline Flush) 10 ml FLUSH ASDIRECTED PRN PRN Reason: Keep Vein Open Sodium Chloride (Saline Flush) 2.5 ml FLUSH ASDIRECTED PRN PRN Reason: Keep Vein Open Lightheadedness and elevated troponins: patient admitted on heparin drip as per Cardiology , plavix 600 mg po 1 dose and aspirin 325 mg po one dose . He was monitor in telemetry , Cardiac enzymes q 6 h . Atorvastatin 80 mg po daily , Cardiac echo , Cardiology Consult, f/up lipid profile , hb a1c , orthostatic vs For paroxysmal afib patient was continued on Cardiazem 180 mg po daily.
--- NOTE | 2017-12-18 20:42 | PCM.PN ---
- General Info Date of Service: 12/18/17 Admission Dx/Problem (Free Text): 77M hx HTN with elevation Trop ECG, chief complain of dizzy spell Subjective Update: no dizziness today, his HR slwo at times in the range of 40s and come back up to 80, denied chest pain SOB - Review of Systems General: Reports: No Symptoms HEENT: Reports: No Symptoms Pulmonary: Reports: No Symptoms Cardiovascular: Reports: No Symptoms Gastrointestinal: Reports: No Symptoms Genitourinary: Reports: No Symptoms Musculoskeletal: Reports: No Symptoms Skin: Reports: No Symptoms Neurological: Reports: No Symptoms - Patient Data Vitals - Most Recent: Last Vital Signs Temp 37.2 C 12/18/17 16:00 Pulse 54 L 12/18/17 16:00 Resp 18 12/18/17 16:00 BP 121/66 12/18/17 16:00 Pulse Ox 98 12/18/17 16:00 Orthostatic Blood Pressure [ 134/77 Standing] Orthostatic Blood Pressure [ 138/66 Supine] Orthostatic Blood Pressure [ 133/70 Sitting] Weight - Most Recent: 69.763 kg I&O - Last 24 Hours: Intake & Output 12/18/17 12/18/17 12/18/17 06:59 14:59 22:59 Intake Total 250 428 Output Total 200 Balance 50 428 Lab Results Last 24 Hours: Laboratory Results - last 24 hr 12/17/17 12/18/17 12/18/17 Range/Units 20:23 01:00 02:28 WBC 6.78 (4.0-11.0) K/uL RBC 3.77 L (4.50-5.90) M/uL Hgb 12.1 L (13.0-17.0) g/dL Hct 35.7 L (38.0-50.0) % MCV 94.7 (80.0-98.0) fL MCH 32.1 H (27.0-32.0) pg MCHC 33.9 (31.0-37.0) g/dL RDW Std Deviation 46.0 (28.0-62.0) fl RDW Coeff of Faith 13 (11.0-15.0) % Plt Count 180 (150-400) K/uL MPV 9.50 (7.40-12.00) fL Neut % (Auto) 51.0 (48.0-80.0) % Lymph % (Auto) 32.2 (16.0-40.0) % [place] % (Auto) 9.9 (0.0-15.0) % Eos % (Auto) 6.0 (0.0-7.0) % Baso % (Auto) 0.9 (0.0-1.5) % Neut # (Auto) 3.5 (1.4-5.7) K/uL Lymph # (Auto) 2.2 (0.6-2.4) K/uL [place] # (Auto) 0.7 (0.0-0.8) K/uL Eos # (Auto) 0.4 (0.0-0.7) K/uL Baso # (Auto) 0.1 (0.0-0.1) K/uL Nucleated RBC % 0.0 /100WBC Nucleated RBCs # 0 K/uL APTT 35.7 H (18.6-31.3) SEC Sodium (136-148) mmol/L Potassium (3.5-5.1) mmol/L Chloride (98-107) mmol/L Carbon Dioxide (21.0-32.0) mmol/L BUN (7.0-18.0) mg/dL Creatinine (0.8-1.3) mg/dL Est Cr Clr Drug Dosing mL/min Estimated GFR (MDRD) ml/min Glucose (74-106) mg/dL Hemoglobin A1c (4.5-6.2) % Calcium (8.5-10.1) mg/dL Total Bilirubin (0.2-1.0) mg/dL AST (15-37) IU/L ALT (14-63) IU/L Alkaline Phosphatase (46-116) U/L Troponin I 0.246 H* (0.000-0.056) ng/mL Total Protein (6.4-8.2) g/dL Albumin (3.4-5.0) g/dL Globulin (2.0-3.5) g/dL Albumin/Globulin Ratio (1.3-2.8) Triglycerides (0-200) mg/dL Cholesterol (50-200) mg/dL LDL Cholesterol, Calc (60-180) mg/dL VLDL Cholesterol (5-55) mg/dL HDL Cholesterol (40-60) mg/dL Cholesterol/HDL Ratio (3.3-6.0) 12/18/17 12/18/17 12/18/17 Range/Units 02:28 02:28 07:03 WBC (4.0-11.0) K/uL RBC (4.50-5.90) M/uL Hgb (13.0-17.0) g/dL Hct (38.0-50.0) % MCV (80.0-98.0) fL MCH (27.0-32.0) pg MCHC (31.0-37.0) g/dL RDW Std Deviation (28.0-62.0) fl RDW Coeff of Faith (11.0-15.0) % Plt Count (150-400) K/uL MPV (7.40-12.00) fL Neut % (Auto) (48.0-80.0) % Lymph % (Auto) (16.0-40.0) % [place] % (Auto) (0.0-15.0) % Eos % (Auto) (0.0-7.0) % Baso % (Auto) (0.0-1.5) % Neut # (Auto) (1.4-5.7) K/uL Lymph # (Auto) (0.6-2.4) K/uL [place] # (Auto) (0.0-0.8) K/uL Eos # (Auto) (0.0-0.7) K/uL Baso # (Auto) (0.0-0.1) K/uL Nucleated RBC % /100WBC Nucleated RBCs # K/uL APTT 39.2 H (18.6-31.3) SEC Sodium 142 (136-148) mmol/L Potassium 3.9 (3.5-5.1) mmol/L Chloride 109 H (98-107) mmol/L Carbon Dioxide 25.8 (21.0-32.0) mmol/L BUN 24 H (7.0-18.0) mg/dL Creatinine 1.4 H (0.8-1.3) mg/dL Est Cr Clr Drug Dosing 43.49 mL/min Estimated GFR (MDRD) 49.0 ml/min Glucose 109 H (74-106) mg/dL Hemoglobin A1c (4.5-6.2) % Calcium 8.6 (8.5-10.1) mg/dL Total Bilirubin 0.2 (0.2-1.0) mg/dL AST 10 L (15-37) IU/L ALT 13 L (14-63) IU/L Alkaline Phosphatase 84 (46-116) U/L Troponin I 0.212 H* (0.000-0.056) ng/mL Total Protein 6.1 L (6.4-8.2) g/dL Albumin 2.7 L (3.4-5.0) g/dL Globulin 3.4 (2.0-3.5) g/dL Albumin/Globulin Ratio 0.8 L (1.3-2.8) Triglycerides (0-200) mg/dL Cholesterol (50-200) mg/dL LDL Cholesterol, Calc (60-180) mg/dL VLDL Cholesterol (5-55) mg/dL HDL Cholesterol (40-60) mg/dL Cholesterol/HDL Ratio (3.3-6.0) 12/18/17 12/18/17 12/18/17 Range/Units 07:03 07:03 13:20 WBC (4.0-11.0) K/uL RBC (4.50-5.90) M/uL Hgb (13.0-17.0) g/dL Hct (38.0-50.0) % MCV (80.0-98.0) fL MCH (27.0-32.0) pg MCHC (31.0-37.0) g/dL RDW Std Deviation (28.0-62.0) fl RDW Coeff of Faith (11.0-15.0) % Plt Count (150-400) K/uL MPV (7.40-12.00) fL Neut % (Auto) (48.0-80.0) % Lymph % (Auto) (16.0-40.0) % [place] % (Auto) (0.0-15.0) % Eos % (Auto) (0.0-7.0) % Baso % (Auto) (0.0-1.5) % Neut # (Auto) (1.4-5.7) K/uL Lymph # (Auto) (0.6-2.4) K/uL [place] # (Auto) (0.0-0.8) K/uL Eos # (Auto) (0.0-0.7) K/uL Baso # (Auto) (0.0-0.1) K/uL Nucleated RBC % /100WBC Nucleated RBCs # K/uL APTT 47.3 H (18.6-31.3) SEC Sodium (136-148) mmol/L Potassium (3.5-5.1) mmol/L Chloride (98-107) mmol/L Carbon Dioxide (21.0-32.0) mmol/L BUN (7.0-18.0) mg/dL Creatinine (0.8-1.3) mg/dL Est Cr Clr Drug Dosing mL/min Estimated GFR (MDRD) ml/min Glucose (74-106) mg/dL Hemoglobin A1c 5.5 (4.5-6.2) % Calcium (8.5-10.1) mg/dL Total Bilirubin (0.2-1.0) mg/dL AST (15-37) IU/L ALT (14-63) IU/L Alkaline Phosphatase (46-116) U/L Troponin I (0.000-0.056) ng/mL Total Protein (6.4-8.2) g/dL Albumin (3.4-5.0) g/dL Globulin (2.0-3.5) g/dL Albumin/Globulin Ratio (1.3-2.8) Triglycerides 38 (0-200) mg/dL Cholesterol 153 (50-200) mg/dL LDL Cholesterol, Calc 82 (60-180) mg/dL VLDL Cholesterol 7 (5-55) mg/dL HDL Cholesterol 63 H (40-60) mg/dL Cholesterol/HDL Ratio 2.4 L (3.3-6.0) 12/18/17 Range/Units 19:00 WBC (4.0-11.0) K/uL RBC (4.50-5.90) M/uL Hgb (13.0-17.0) g/dL Hct (38.0-50.0) % MCV (80.0-98.0) fL MCH (27.0-32.0) pg MCHC (31.0-37.0) g/dL RDW Std Deviation (28.0-62.0) fl RDW Coeff of Faith (11.0-15.0) % Plt Count (150-400) K/uL MPV (7.40-12.00) fL Neut % (Auto) (48.0-80.0) % Lymph % (Auto) (16.0-40.0) % [place] % (Auto) (0.0-15.0) % Eos % (Auto) (0.0-7.0) % Baso % (Auto) (0.0-1.5) % Neut # (Auto) (1.4-5.7) K/uL Lymph # (Auto) (0.6-2.4) K/uL [place] # (Auto) (0.0-0.8) K/uL Eos # (Auto) (0.0-0.7) K/uL Baso # (Auto) (0.0-0.1) K/uL Nucleated RBC % /100WBC Nucleated RBCs # K/uL APTT 32.0 H (18.6-31.3) SEC Sodium (136-148) mmol/L Potassium (3.5-5.1) mmol/L Chloride (98-107) mmol/L Carbon Dioxide (21.0-32.0) mmol/L BUN (7.0-18.0) mg/dL Creatinine (0.8-1.3) mg/dL Est Cr Clr Drug Dosing mL/min Estimated GFR (MDRD) ml/min Glucose (74-106) mg/dL Hemoglobin A1c (4.5-6.2) % Calcium (8.5-10.1) mg/dL Total Bilirubin (0.2-1.0) mg/dL AST (15-37) IU/L ALT (14-63) IU/L Alkaline Phosphatase (46-116) U/L Troponin I (0.000-0.056) ng/mL Total Protein (6.4-8.2) g/dL Albumin (3.4-5.0) g/dL Globulin (2.0-3.5) g/dL Albumin/Globulin Ratio (1.3-2.8) Triglycerides (0-200) mg/dL Cholesterol (50-200) mg/dL LDL Cholesterol, Calc (60-180) mg/dL VLDL Cholesterol (5-55) mg/dL HDL Cholesterol (40-60) mg/dL Cholesterol/HDL Ratio (3.3-6.0) Med Orders - Current: Current Medications Acetaminophen (Tylenol) 650 mg PO Q4H PRN PRN Reason: Pain (Mild 1-3)/fever Albuterol/Ipratropium (Duoneb 3.0-0.5 Mg/3 Ml) 3 ml NEB Q4HRRT PRN PRN Reason: Shortness Of Breath/wheezing Aspirin (Aspirin) 81 mg PO DAILY [facility] Last Admin: 12/18/17 14:01 Dose: 81 mg Clopidogrel Bisulfate (Plavix) 75 mg PO DAILY [facility] Last Admin: 12/18/17 14:01 Dose: 75 mg Diltiazem HCl (Cardizem Cd) 120 mg PO DAILY [facility] Fish Oil (Fish Oil) 1 gm PO DAILY [facility] Last Admin: 12/18/17 08:49 Dose: 1 gm Heparin Sodium (Porcine) (Heparin Sodium) 0 units IVPUSH .BOLUS PRN; Protocol PRN Reason: HEPARIN DRIP Last Admin: 12/18/17 07:54 Dose: 1,000 units Lactated Ringer's (Ringers, Lactated) 1,000 mls @ 125 mls/hr IV ASDIRECTED [facility] Morphine Sulfate (Morphine) 2 mg IVPUSH Q2H PRN PRN Reason: Pain Multivitamins/Minerals/Vitamin C (Tab-A-Bria) 1 tab PO DAILY [facility] Last Admin: 12/18/17 08:49 Dose: 1 tab Ondansetron HCl (Zofran) 4 mg IVPUSH Q4H PRN PRN Reason: Nausea Oxycodone HCl (Oxycodone) 5 mg PO Q4H PRN PRN Reason: Pain (moderate 4-6) Sodium Chloride (Saline Flush) 10 ml FLUSH ASDIRECTED PRN PRN Reason: Keep Vein Open Sodium Chloride (Saline Flush) 2.5 ml FLUSH ASDIRECTED PRN PRN Reason: Keep Vein Open Discontinued Medications Aspirin (Aspirin) 324 mg PO ONETIME ONE Stop: 12/17/17 15:38 Last Admin: 12/17/17 15:45 Dose: 324 mg Aspirin (Halfprin) mg PO DAILY [facility] Atorvastatin Calcium (Lipitor) 80 mg PO ONETIME ONE Stop: 12/17/17 18:36 Last Admin: 12/17/17 19:50 Dose: 80 mg Clopidogrel Bisulfate (Plavix) 600 mg PO ONETIME ONE Stop: 12/17/17 18:36 Last Admin: 12/17/17 19:50 Dose: 600 mg Diltiazem HCl (Cardizem Cd) 180 mg PO DAILY [facility] Last Admin: 12/18/17 08:49 Dose: 180 mg Diltiazem HCl (Cardizem Cd) 120 mg PO DAILY [facility] Last Admin: 12/18/17 18:05 Dose: Not Given Heparin Sodium (Porcine) (Heparin Sodium) 0 units IVPUSH .BOLUS PRN; Protocol PRN Reason: HEPARIN DRIP Last Admin: 12/17/17 20:35 Dose: 4,000 units Heparin Sodium (Porcine) (Heparin Sodium) 1,000 units IVPUSH .BOLUS ONE Stop: 12/18/17 01:38 Last Admin: 12/18/17 01:47 Dose: 1,000 units Heparin Sodium (Porcine) (Heparin Sodium) Confirm Administered Dose 5,000 units .ROUTE .STK-MED ONE Stop: 12/18/17 01:42 Last Admin: 12/18/17 01:47 Dose: Not Given Heparin Sodium (Porcine) (Heparin Sodium) 1,000 units IVPUSH .BOLUS ONE Stop: 12/18/17 13:56 Last Admin: 12/18/17 14:47 Dose: 1,000 units Sodium Chloride (Normal Saline) 1,000 mls @ 999 mls/hr IV STAT ONE Stop: 12/17/17 15:14 Last Admin: 12/17/17 14:29 Dose: 999 mls/hr Heparin Sodium/Sodium Chloride (Heparin-1/2ns 25,000 Units/500) 25,000 unit in 500 mls @ 16.874 mls/hr IV TITRATE [facility]; Protocol Last Titration: 12/18/17 14:48 Dose: 18 units/kg/hr, 25.311 mls/hr Iopamidol (Isovue Multipack-370 (76%)) 50 ml IVPUSH ONETIME STA Stop: 12/17/17 17:40 Last Admin: 12/17/17 17:39 Dose: 50 ml Sodium Chloride (Saline Flush) 10 ml FLUSH ASDIRECTED PRN PRN Reason: Keep Vein Open Last Admin: 12/17/17 14:29 Dose: 10 ml Sodium Chloride (Saline Flush) 2.5 ml FLUSH ASDIRECTED PRN PRN Reason: Keep Vein Open Last Admin: 12/17/17 14:29 Dose: 2.5 ml - Exam General: Alert, Oriented HEENT: Pupils Equal, Pupils Reactive Neck: Supple Lungs: Clear to Auscultation Cardiovascular: Regular Rate, Regular Rhythm, Bradycardia GI/Abdominal Exam: Normal Bowel Sounds, Soft Extremities: Normal Inspection EKG INTERPRETATION Rhythm: NSR - Problem List Review Problem List Initiated/Reviewed/Updated: Yes - Plan Plan:: 77M HTN with dizziness with mildly elevation trop 1. Trop elevation: less likely ACS, CT angiogram neg for PE, no peaking, tro trending down. Never had chest pain or SOB - will need stress test as outpatient - echo preserved EF BNP normal. 2. slow HR, will decrease cartia to 120 daily, he will need zio patch 14d 3. right parotid nodule per hospitalist
--- NOTE | 2017-12-19 11:43 | ECHO ---
EXAM DATE: 12/17/17 PATIENT'S AGE: 77 The echocardiogram report can be seen in this patient's EMR (Electronic Medical Record) in the Reports section. The report has also been scanned into PACs. ROSA MARIA
[2017-12-19] MEDS ORDERED: Diltiazem 120 MG Cap.CD PO SCH (18:00)
== END 2017-12-18 20:30 | disposition home or self-care (01) ==
LOC: MW.ED 14:11 → MW.MS 17:34
PROVIDERS: ADMIT Internal Medicine; ATTEND Internal Medicine
DX: R42 Dizziness and giddiness (principal); R79.89 Other specified abnormal findings of blood chemistry; I48.91 Unspecified atrial fibrillation; I10 Essential (primary) hypertension; I77.810 Thoracic aortic ectasia; I21.4 Non-ST elevation (NSTEMI) myocardial infarction; M19.90 Unspecified osteoarthritis, unspecified site; K11.6 Mucocele of salivary gland; F17.210 Nicotine dependence, cigarettes, uncomplicated; Z79.82 Long term (current) use of aspirin; Z79.899 Other long term (current) drug therapy
CPT/HCPCS: 36415; 70450; 71046; 71275; 80053; 80061; 83036; 83880; 84484; 85025; 85379; 85730; 93005; 93306; 93880; 96361; 96374; 96376; 99285; A9270; G0378; J1644; J7040; Q9967; 96360

== ENCOUNTER 2019-12-14 11:23 | Emergency (ER) | payer MEDICARE ==
[2019-12-14] MEDS ORDERED: Meclizine 25 MG Tab PO ONE (11:52)
--- NOTE | 2019-12-14 11:56 | EDM.PDOC ---
ED HPI GENERAL MEDICAL PROBLEM - General Chief Complaint: Cardiovascular Problem Stated Complaint: DIZZINESS Time Seen by Provider: 12/14/19 11:29 - History of Present Illness INITIAL COMMENTS - FREE TEXT/NARRATIVE: History of present illness: Patient presents with chief complaint of dizziness. He describes his dizziness as feeling slightly off balance while moving his eyes he denies any presyncope or passing out type symptoms he denies any chest pain shortness of breath headache no abdominal pain or back pain. He denies any focal weakness trouble speaking or any visual difficulties. He states that when he smoking a cigar and he then moves his eyes around he has a slight feeling of being off balance. He says this occurred in the past where he felt very much off balance for short time while up out of a vehicle he was seen in emergency department at that time and was admitted and had a work-up including imaging echocardiogram carotid Dopplers multiple blood draws and this resulted in no definitive diagnoses or pr oblems. He has a history of atrial fibrillation glaucoma. Review of systems: As per history of present illness and below otherwise all systems reviewed and negative. Past medical history: As per history of present illness and as reviewed below otherwise noncontributory. Surgical history: As per history of present illness and as reviewed below otherwise noncontributory. Social history: No reported history of drug or alcohol abuse. Family history: As per history of present illness and as reviewed below otherwise noncontributory. Physical exam: HEENT: Atraumatic, normocephalic, pupils reactive, negative for conjunctival pallor or scleral icterus, mucous membranes moist, throat clear, neck supple, nontender, trachea midline. Lungs: Clear to auscultation, breath sounds equal bilaterally, chest nontender. Heart: S1S2, regular, negative for clicks, rubs, or JVD. Abdomen: Soft, nondistended, nontender. Negative for masses or hepatosplenomegaly. Negative for costovertebral tenderness. Pelvis: Stable nontender. Genitourinary: Deferred. Rectal: Deferred. Extremities: Atraumatic, negative for cords or calf pain. Neurovascular unremarkable. Neuro: Awake, alert, oriented. Cranial nerves II through XII unremarkable. Cerebellum unremarkable. Motor and sensory unremarkable throughout. Exam nonfocal. There is no pronator drift. 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 Romberg is unremarkable no evidence of ataxia Diagnostics: [] Therapeutics: [] Impression: Dizziness [] Plan: [] Definitive disposition and diagnosis as appropriate pending reevaluation and review of above. - Related Data Allergies Allergy/AdvReac Type Severity Reaction Status Date / Time Glaucoma Drops Allergy Other Uncoded 12/14/19 11:27 Home Meds: Home Meds Aspirin [Halfprin] 1 tab PO DAILY 01/10/16 [History] Fish Oil/Garrett-3 Fatty Acids [Fish Oil 1,000 MG] 1 cap PO DAILY 01/10/16 [History] Multivitamin [Multi-Day Vitamins] 1 tab PO DAILY 01/10/16 [History] Aspirin 81 mg PO DAILY #60 tab.chew 12/18/17 [Rx] Diltiazem [Cardizem CD] 120 mg PO DAILY #30 cap.cd 12/18/17 [Rx] Multivitamins [Tab-A-Bria] 1 tab PO DAILY tablet 12/18/17 [Rx] Meclizine [Antivert] 25 mg PO Q6H #20 tab 12/14/19 [Rx] Past Medical History HEENT History: Reports: Glaucoma Cardiovascular History: Reports: Afib, Other (See Below) Other Cardiovascular History: h/o SVT first 1-2 per week, after placed on diltiazem 1-2 per year- last one 3 months ago. Last between 30 sec. and 10 minutes Respiratory History: Reports: None Gastrointestinal History: Reports: Other (See Below) Other Gastrointestinal History: Current Left Inguinal hernia Genitourinary History: Reports: Prostate Disorder Other Genitourinary History: Hx of Prostactectomy Musculoskeletal History: Reports: Arthritis Other Musculoskeletal History: Right Shoulder pain, hx: Shoulder dislocation Neurological History: Reports: None Psychiatric History: Reports: None Endocrine/Metabolic History: Reports: None Hematologic History: Reports: None Immunologic History: Reports: None Oncologic (Cancer) History: Reports: Prostate, Squamous Cell Carcinoma Dermatologic History: Reports: None Other Dermatologic History: Sebaceous Cyst to back, Hx of Squamous cell CA - Infectious Disease History Infectious Disease History: Reports: Chicken Pox - Past Surgical History Head Surgeries/Procedures: Reports: None HEENT Surgical History: Reports: Cataract Surgery, Other (See Below) Cardiovascular Surgical History: Reports: None Respiratory Surgical History: Reports: None GI Surgical History: Reports: Hernia, Inguinal Male Surgical History: Reports: Prostatectomy Endocrine Surgical History: Reports: None Neurological Surgical History: Reports: None Musculoskeletal Surgical History: Reports: None Oncologic Surgical History: Reports: None Dermatological Surgical History: Reports: None Social & Family History - Family History Family Medical History: Noncontributory - Caffeine Use Caffeine Use: Reports: Coffee - Recreational Drug Use Recreational Drug Use: No ED ROS GENERAL - Review of Systems Review Of Systems: See Below ED EXAM, GENERAL - Physical Exam Exam: See Below EKG INTERPRETATION EKG Interpretation Comments: EKG is normal sinus rhythm rate is 76 bpm multifocal PVCs are present no specific ischemia is noted there is a nonspecific interventricular conduction delay read and interpreted by me Course - Vital Signs Text/Narrative:: Patient presents with a very mild and vague sensation of being off balance especially when he is moving his eyes from side to side while smoking a cigar. He denies any syncopal type symptoms there is no headache chest pain trouble breathing none of these types of symptoms he has not had palpitations he is says this happened prior in [place] and he ended up with an hospital admission with CT scans and blood drawn multiple times and they did not find anything. I did not find anything compelling on physical exam or vital signs however I cannot rule out cardiovascular issues as a cause of his problem without doing blood work and imaging. Patient now feels better and does not want to proceed with this he would like some medicine for his symptoms in case they come back. Warned that I cannot diagnose him properly without proper studies but that if he does not want to proceed with that he is encouraged to return to the ED if the symptoms become worse I will write him some meclizine in case symptoms return and I am going to refer him to primary care. 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 Last Recorded V/S: Last Vital Signs Temp 36.4 C 12/14/19 11:28 Pulse 63 12/14/19 11:28 Resp 18 12/14/19 11:28 BP 177/144 H 12/14/19 11:28 Pulse Ox 98 12/14/19 11:28 Departure - Departure Time of Disposition: 11:49 Disposition: Home, Self-Care 01 Condition: Good Clinical Impression: Dizziness Instructions: Dizziness, [id number] Referrals: PCP,None [Primary Care Provider] - Additional Instructions: The following information is given to patients seen in the emergency department who are being discharged to home. This information is to outline your options for follow-up care. We provide all patients seen in our emergency department with a follow-up referral. The need for follow-up, as well as the timing and circumstances, are variable depending upon the specifics of your emergency department visit. If you don't have a primary care physician on staff, we will provide you with a referral. We always advise you to contact your personal physician following an emergency department visit to inform them of the circumstance of the visit and for follow-up with them and/or the need for any referrals to a consulting specialist. The emergency department will also refer you to a specialist when appropriate. This referral assures that you have the opportunity for follow-up care with a specialist. All of these measure are taken in an effort to provide you with optimal care, which includes your follow-up. Under all circumstances we always encourage you to contact your private physician who remains a resource for coordinating your care. When calling for follow-up care, please make the office aware that this follow-up is from your recent emergency room visit. If for any reason you are refused follow-up, please contact the [facility] Emergency Department at and asked to speak to the emergency department charge nurse. [facility] - Primary [facility] [address] [place] [id number] [address] Sepsis Event Note (ED) - Evaluation Sepsis Screening Result: No Definite Risk - Focused Exam Vital Signs: Vital Signs Temp Pulse Resp BP Pulse Ox 12/14/19 11:28 36.4 C 63 18 177/144 H 98
[2019-12-14 12:14] VITALS: BP 155/56; PULSE 67
== END 2019-12-14 12:20 | disposition home or self-care (01) ==
LOC: MW.ED 11:23
DX: R42 Dizziness and giddiness (principal); I48.91 Unspecified atrial fibrillation; Z88.8 Allergy status to other drugs, medicaments and biological substances; Z79.82 Long term (current) use of aspirin; Z79.899 Other long term (current) drug therapy
CPT/HCPCS: 93005; 99284; A9270; 99282